=== PATIENT | female | born 2000 | race Caucasian/White ===

== ENCOUNTER 2020-10-03 12:43 | Emergency (ER) | payer OTHER ==
[~2020-10-03] VITALS: Ht 157.5 cm; Wt 60.3 kg
[2020-10-03] MEDS ORDERED: ADDERALL 20 MG20 MG PO (13:00)
[2020-10-03] MEDS ORDERED: KEFLEX500 M1 PO (15:33)
[2020-10-03 16:19] VITALS: BP 125/66
== END 2020-10-03 16:19 | disposition home or self-care (01) ==
LOC: M.ERS 12:43
DX: S61.411A Laceration without foreign body of right hand, initial encounter (principal); W26.8XXA Contact with other sharp object(s), not elsewhere classified, initial encounter; Y93.89 Activity, other specified; Y92.89 Other specified places as the place of occurrence of the external cause; Y99.8 Other external cause status